=== PATIENT | female | born 1970 | race Two or more races ===

== ENCOUNTER 2016-09-29 11:45 | Emergency (ER) | payer OTHER ==
--- NOTE | ~2016-09-29 | CR72 ---
[facility] A Service of [facility] & [facility] RADIOLOGY TEXT RESULTS PATIENT: RYLEE HARTLEY LOCATION: [facility] : 66 UNIT #: [id number] AGE: [address]: Garbiel Grijalva MD SEX: F ORDER DR: [id number] [facility] [address], [place] [address] [id number] MR#: [id number] Acc #: [id number] NAME: RYLEE HARTLEY : 1970 SEX: F STUDY DATE/TIME: 09/29/2016 11:34 UNIT: [facility] ROOM: STUDY DESCRIPTION: CR Chest Single View Portable Attending Physician: Gabriel Grijalva M.D. Ordering Physician: Gabriel Grijalva M.D. Primary Care Physician: Primary Care Physician No MEDICAL IMAGING REPORT This report is preliminary unless electronic signature is present EXAM Portable chest 1-view, 09/29/2016 COMPARISON 11/27/2010 HISTORY Cough for about 1 week FINDINGS Submaximal inspiration, otherwise negative. No consolidation or effusion or pneumothorax. Heart size within normal limits. Dictated by... Jose Mg M.D. THIS IS AN ELECTRONICALLY VERIFIED REPORT Jose Mg M.D. at 09/30/2016 9:50 AM LEOLA/betzaida TD: 09/29/2016 13:52 JOB #: [id number] MEDICAL IMAGING REPORT Page 1 of 1 COPY
[2016-09-29 12:11] LABS: URINE SOURCE CLEAN CATCH
[2016-09-29 12:19] LABS: BASOPHIL# 0.1 X10e3 (0-0.3); BASOPHIL% 1.1 % (0-2.5); EOSINOPHIL# 0.4 X10e3 (0-0.7); EOSINOPHIL% 4.9 % (0.0-7.0); HEMOGLOBIN 15.3 gm/dL (12.0-16.0); LYMPHOCYTE# 2.7 X10e3 (1.0-3.5); LYMPHOCYTE% 35.3 % (17.0-45.0); MEAN CELL VOLUME 91.1 FL (83-96); MEAN PLATELET VOLUME 8.4 FL (6.5-11.5); MONOCYTE# 0.8 X10e3 (0-1.0); MONOCYTE% 10.6 % (3.0-12.0); NEUTROPHIL# 3.7 X10e3 (1.5-7.1); NEUTROPHIL% 48.1 % (40-75); PLATELET COUNT 297 X10e3 (140-420); RED BLOOD COUNT 4.94 X10e (3.90-5.30); RED CELL DISTRIBUTION WIDTH 12.4 % (11.0-15.5); WHITE BLOOD COUNT 7.7 X10e3 (4.0-10.5)
[2016-09-29 12:20] LABS: DIFF IND NO
[2016-09-29 12:21] LABS: URINE APPEARANCE CLEAR; URINE BILIRUBIN NEG (NEG); URINE BLOOD NEG (NEG); URINE COLOR YELLOW; URINE GLUCOSE >1000 MG/DL (NEG); URINE KETONE NEG (NEG); URINE LEUKOCYTE ESTERASE NEG (NEG); URINE NITRATE NEG (NEG); URINE PROTEIN NEG (NEG); URINE SPECIFIC GRAVITY 1.027 (1.003-1.035); URINE UROBILINOGEN 0.2 MG/DL (NEG)
[2016-09-29 12:22] LABS: CULTURE INDICATED? NO
[2016-09-29 12:30] LABS: POC - CKMB 2.8 ng/mL (0.0-7.9); POC - TROPONIN <0.05 ng/mL (<=0.05)
[2016-09-29 12:45] LABS: ALKALINE PHOSPHATASE 99 U/L (32-92); ALT (SGPT) 24 U/L (10-40); AST (SGOT) 18 U/L (10-42); BILIRUBIN, DIRECT <0.1 mg/dL (0.0-0.2); BILIRUBIN,INDIRECT 0.4 mg/dL (0.0-0.9); BILIRUBIN,TOTAL 0.5 mg/dL (0.2-2.0); BLOOD UREA NITROGEN 13 mg/dL (9-23); CALCIUM SERUM 9.6 mg/dL (8.4-10.2); CARBON DIOXIDE 26 mmol/L (22-31); CHLORIDE 96 mmol/L (100-111); CREATININE SERUM 0.5 mg/dL (0.6-1.4); GLOM FILT RATE Estimated 114.5 mL/min (>60); GLUCOSE FASTING 371 mg/dL (70-110); LIPASE 25 U/L (22-51); POTASSIUM 4.5 mmol/L (3.5-5.1); PROTEIN TOTAL SERUM 7.2 g/dL (6.0-8.3); SODIUM 131 mmol/L (135-145)
== END 2016-09-29 13:50 | disposition home or self-care (01) ==
LOC: CED 11:45
PROVIDERS: Emergency Medicine
DX: E10.65 Type 1 diabetes mellitus with hyperglycemia (principal); I10 Essential (primary) hypertension; F17.200 Nicotine dependence, unspecified, uncomplicated; Z90.710 Acquired absence of both cervix and uterus; Z79.4 Long term (current) use of insulin
CPT/HCPCS: 36415; 71010; 80048; 80076; 81003; 82553; 82947; 83690; 84484; 85025; 96360; 99284; J1815